=== PATIENT | female | born 1940 | race Hispanic/Latino ===

== ENCOUNTER 2018-03-17 23:12 | Emergency (ER) | payer MEDICARE ==
--- NOTE | 2018-03-17 23:44 | C.PDOC ---
History Of Present Illness 78 year old female presents to the ED from her [place] apartment. Patient states she heard voices from her ceiling and thought she heard people were trying to kill her. Patient is pleasant, cooperative, well groomed. Patient states she wants to spend the night in the ED. Patient denies SI/HI, hallucinations, other medical complaints. Time Seen by Provider: 03/17/18 23:44 Chief Complaint (Nursing): Psychiatric Evaluation History Per: Patient History/Exam Limitations: no limitations Onset/Duration Of Symptoms: Hrs Current Symptoms Are (Timing): Still Present Suicide/Self Injury Attempted (Context): None Modifying Factor(s): None Associated Symptoms: denies: Depression, Suicidal Thoughts, Suicidal Plan Involuntary Hold By: None Recent travel outside of the [place]: No Additional History Per: Patient Past Medical History Reviewed: Historical Data, Nursing Documentation, Vital Signs Vital Signs: Last Vital Signs Temp 97.9 F 03/18/18 04:07 Pulse 62 03/18/18 04:07 Resp 20 03/18/18 04:07 BP 136/70 03/18/18 04:07 Pulse Ox 100 03/18/18 04:07 - Medical History PMH: No Chronic Diseases Surgical History: No Surg Hx Family History: States: Unknown Family Hx - Social History Hx Alcohol Use: Yes Hx Substance Use: No - Immunization History Hx Tetanus Toxoid Vaccination: Yes Hx Influenza Vaccination: Yes Hx Pneumococcal Vaccination: Yes Review Of Systems Constitutional: Negative for: Fever, Chills Cardiovascular: Negative for: Chest Pain Gastrointestinal: Negative for: Nausea, Vomiting Neurological: Negative for: Weakness, Numbness Psych: Negative for: Depression, Suicidal ideation Physical Exam - Physical Exam Appears: Non-toxic, No Acute Distress Skin: Warm, Dry Head: Normacephalic Eye(s): bilateral: Normal Inspection Neck: Supple Chest: Symmetrical Cardiovascular: Rhythm Regular Respiratory: No Rales, No Rhonchi, No Wheezing Gastrointestinal/Abdominal: Soft, No Tenderness, No Guarding, No Rebound Extremity: Bilateral: Atraumatic, Normal Color And Temperature, Normal ROM Neurological/Psych: Oriented x3, Normal Speech Gait: Steady ED Course And Treatment O2 Sat by Pulse Oximetry: 98 (ON RA) Pulse Ox Interpretation: Normal Disposition Counseled Patient/Family Regarding: Studies Performed, Diagnosis - Disposition Disposition Time: 23:44 Condition: FAIR Forms: [employer] (Wolof) - Clinical Impression Clinical Impression: Dementia - Scribe Statement The provider has reviewed the documentation as recorded by the Scribe New Shoemaker All medical record entries made by the Scribe were at my direction and personally dictated by me. I have reviewed the chart and agree that the record accurately reflects my personal performance of the history, physical exam, medical decision making, and the department course for this patient. I have also personally directed, reviewed, and agree with the discharge instructions and disposition. Physician Patient Turnover Patient Signed Over To: Malena Watts Handoff Comments: pending face to face exam by dr Arora.
[2018-03-18 06:39] VITALS: RESP 18
--- NOTE | 2018-03-18 08:53 | PCM.PSYCH ---
<Simi Arora - Last Filed: 03/18/18 08:52> Initial Psychiatric Evaluation - Initial Psychiatric Evaluation Type of Admission: Voluntary Chief Complaint (in patient's own words): "My neighbors bother me" History of Present Illness and Precipitating Events: The pt is seen, chart reviewed, case discussed. Consult was requested for her psych sxs (paranoia) She is cleared for d/c Crisis will arrange transportation (cab or family) Full note to follow Past Psychiatric History - Past Psychiatric History Pertinent Medical Hx (Current Medical&Sleep Prob, Allergies): Allergies Allergy/AdvReac Type Severity Reaction Status Date / Time No Known Allergies Allergy Verified 06/26/17 10:54 No Known Home Med 03/18/18 <Malena Watts - Last Filed: 03/18/18 09:54> Past Psychiatric History - Past Psychiatric History Pertinent Medical Hx (Current Medical&Sleep Prob, Allergies): Allergies Allergy/AdvReac Type Severity Reaction Status Date / Time No Known Allergies Allergy Verified 06/26/17 10:54 No Known Home Med 03/18/18
[2018-03-18 09:08] VITALS: BP 138/78; PULSE 72; TEMP 98.4; O2SAT 100
== END 2018-03-18 10:07 | disposition home or self-care (01) ==
LOC: C.ER 23:12
DX: F03.90 Unspecified dementia, unspecified severity, without behavioral disturbance, psychotic disturbance, mood disturbance, and anxiety (principal)

== ENCOUNTER 2018-07-04 22:32 | Emergency (ER) | payer MEDICARE ==
[2018-07-04 22:45] VITALS: TEMP 97.5; O2SAT 100
[2018-07-04 23:22] VITALS: BP 161/87; PULSE 80; RESP 18
--- NOTE | 2018-07-05 00:07 | C.PDOC ---
History Of Present Illness 78 year old female presents to the ED c/o right foot pain. Patient states she misstepped, felt pulling to the posterior right ankle area few hours [employer]. Patient reports similar injury to the same leg 6 weeks ago. Patient did not taken anything for pain. Patient denies weakness, numbness, direct trauma or fall. Time Seen by Provider: 07/04/18 22:58 Chief Complaint (Nursing): Lower Extremity Problem/Injury History Per: Patient History/Exam Limitations: no limitations Onset/Duration Of Symptoms: Hrs Current Symptoms Are (Timing): Still Present Recent travel outside of the [place]: No Additional History Per: Patient - Ankle/Foot Description Of Injury: Twisted Past Medical History Reviewed: Historical Data, Nursing Documentation, Vital Signs Vital Signs: Last Vital Signs Temp 97.5 F L 07/04/18 22:36 Pulse 80 07/04/18 23:21 Resp 18 07/04/18 23:21 BP 161/87 H 07/04/18 23:21 Pulse Ox 100 07/04/18 23:21 - Medical History PMH: No Chronic Diseases Denies: Diabetes, Hepatitis, HIV, HTN, Seizures, Sexually Transmitted Disease Surgical History: No Surg Hx Family History: States: Unknown Family Hx - Social History Hx Alcohol Use: Yes Hx Substance Use: No - Immunization History Hx Tetanus Toxoid Vaccination: Yes Hx Influenza Vaccination: Yes Hx Pneumococcal Vaccination: Yes Review Of Systems Constitutional: Negative for: Fever, Chills Cardiovascular: Negative for: Chest Pain Respiratory: Negative for: Shortness of Breath Gastrointestinal: Negative for: Nausea, Vomiting, Abdominal Pain Musculoskeletal: Positive for: Foot Pain Skin: Negative for: Rash Neurological: Negative for: Weakness, Numbness Physical Exam - Physical Exam Appears: Non-toxic, No Acute Distress Skin: Normal Color, Warm, Dry Head: Atraumatic, Normacephalic Eye(s): bilateral: Normal Inspection Neck: Normal ROM, Supple Extremity: Normal ROM, Tenderness (posterior right ankle area), Capillary Refill (< 2 seconds), No Deformity, No Swelling, Other (no tenderness to right lateral and medial malleolus) Pulses: Left Dorsalis Pedis: Normal, Right Dorsalis Pedis: Normal Neurological/Psych: Oriented x3, Normal Speech, Normal Cognition, Normal Motor, Normal Sensation Gait: Steady ED Course And Treatment O2 Sat by Pulse Oximetry: 100 (ON RA) Pulse Ox Interpretation: Normal - Other Rad Right ankle X-Ray X-Ray: Interpreted by Me, Viewed By Me Interpretation: No fracture or dislocation Progress Note: Plan: - Motrin 400 mg PO. - right ankle X-Ray. On reassessment, patient is resting comfortably, and is in no acute distress. Patient was instructed to follow up with physician/clinic in 1-2 days for further evaluation. Disposition Counseled Patient/Family Regarding: Diagnosis, Need For Followup, Rx Given - Disposition Disposition: HOME/ ROUTINE Disposition Time: 00:01 Condition: STABLE Additional Instructions: Wear LAURA bandage for support Take motrin or advil as needed for pain Return to ER if worse Instructions: Ankle Sprain (DC) Forms: [employer] (Serbian) - Clinical Impression Clinical Impression: Right ankle sprain - PA / CHIROPRACTIC DOCTOR / Resident Statement MD/DO has reviewed & agrees with the documentation as recorded. - Scribe Statement The provider has reviewed the documentation as recorded by the Scribe New [employer]emaker All medical record entries made by the Scribe were at my direction and personally dictated by me. I have reviewed the chart and agree that the record accurately reflects my personal performance of the history, physical exam, medical decision making, and the department course for this patient. I have also personally directed, reviewed, and agree with the discharge instructions and disposition.
--- NOTE | 2018-07-05 10:38 | RAD ---
Date of service: 07/04/2018 PROCEDURE: Right Ankle Radiographs. HISTORY: pain, posterior ankle COMPARISON: None available. FINDINGS: BONES: Normal. No fracture. JOINTS: Normal. No osteoarthritis. Ankle mortise maintained. Talar dome intact SOFT TISSUES: Mild circumferential soft tissue swelling. OTHER FINDINGS: None. IMPRESSION: No acute fracture. Mild soft tissue swelling circumferentially.
== END 2018-07-05 00:27 | disposition home or self-care (01) ==
LOC: C.ER 22:32
DX: S93.401A Sprain of unspecified ligament of right ankle, initial encounter (principal); X58.XXXA Exposure to other specified factors, initial encounter

== ENCOUNTER 2018-10-30 11:35 | Inpatient (IN) | payer MEDICARE ==
[2018-10-30 13:33] LABS: BASO # 0.1 K/uL (0.0-0.2); EOS # 0.1 K/uL (0.0-0.7); EOS % 1.3 % (0.0-4.0); LYMPH # 2.1 K/uL (1.0-4.3); LYMPH % 23.6 % (20.0-40.0); MEAN CORPUSCULAR HEMOGLOBIN 31.5 pg (27.0-31.0); MEAN CORPUSCULAR HGB CONC 35.1 g/dL (33.0-37.0); MEAN PLATELET VOLUME 8.8 fL (7.2-11.7); MONO # 0.6 K/uL (0.0-0.8); MONO % 6.5 % (0.0-10.0); NEUT % 67.6 % (50.0-75.0); RBC 4.75 Mil/uL (3.80-5.20); RED CELL DISTRIBUTION WIDTH 13.4 % (11.5-14.5); WHITE BLOOD COUNT 8.9 K/uL (4.8-10.8)
[2018-10-30 13:37] LABS: MEAN CELL VOLUME 89.8 fL (81.0-99.0)
[2018-10-30 13:42] LABS: SQUAMOUS EPITHIAL 37 /hpf (0-5); URINE BACTERIA OCC (<OCC); URINE BILIRUBIN NEGATIVE (NEGATIVE); URINE BLOOD NEGATIVE (NEGATIVE); URINE CLARITY Hazy (Clear); URINE COLOR Yellow (YELLOW); URINE GLUCOSE (UA) NORMAL (Normal); URINE LEUKOCYTE ESTERASE 3+ Leu/uL (Negative); URINE PROTEIN NEGATIVE (NEGATIVE); URINE UROBILINOGEN NORMAL mg/dL (0.2-1.0)
[2018-10-30 13:48] LABS: ALB/GLOB RATIO 1.7 (1.0-2.1); ALBUMIN 4.5 g/dL (3.5-5.0); ALT/SGPT 23 U/L (9-52); AST/SGOT 28 U/L (14-36); BLOOD UREA NITROGEN 20 mg/dL (7-17); CALCIUM 10.1 mg/dl (8.6-10.4); GFR NON-AFRICAN AMERICAN > 60; LIPASE 96 U/L (23-300)
[2018-10-30 14:02] LABS: BARBITURATES, UR NEGATIVE (NEGATIVE); BENZODIAZEPINES, UR NEGATIVE (NEGATIVE); OPIATES, UR NEGATIVE (NEGATIVE); PHENCYCLIDINE, UR NEGATIVE (NEGATIVE)
[2018-10-30] MEDS ORDERED: Sodium Chloride 0.9% 1,000 ML IV SCH (14:30)
[2018-10-30] MEDS ORDERED: Sodium Chloride 0.9% 1,000 ML ONE (14:40)
--- NOTE | 2018-10-30 14:54 | C.PDOC ---
History Of Present Illness 78 y/o female with unclear pmh brought to ed by police, found wandering in the street. pt initially mildly agitated and saying things about being in withdrawal and needing an antidote form orange juice and alcohol that she drank. daughter was contacted and told nurse Yolanda that mother has had periods of confusion over last few years and she has been unable to get her to doctor for evaluation. pt voices no physcial complaints or psychiatric complaints. Time Seen by Provider: 10/30/18 12:32 Chief Complaint (Nursing): Altered Mental Status History Per: Patient, EMS, Family Onset Of Symptoms: Cannot Confirm Onset Current Symptoms Are (Timing): Better Usual Baseline: Unknown Exacerbating Factor(s): Unknown Use Of Anticoag/Antiplatelets: Unknown Speech Is: Normal Associated Symptoms: Confused, Agitated. denies: Fever, Chills Past Medical History Reviewed: Historical Data, Nursing Documentation, Vital Signs Vital Signs: Last Vital Signs Temp 99.2 F 10/30/18 11:45 Pulse 92 H 10/30/18 11:45 Resp 17 10/30/18 11:45 BP 154/103 H 10/30/18 11:45 Pulse Ox 97 10/30/18 11:45 Primary Care Provider: [place] - Medical History PMH: Denies: Diabetes, Hepatitis, HIV, HTN, Seizures, Sexually Transmitted Disease Family History: States: Unknown Family Hx - Social History Hx Alcohol Use: Yes Hx Substance Use: No - Immunization History Hx Tetanus Toxoid Vaccination: Yes Hx Influenza Vaccination: Yes Hx Pneumococcal Vaccination: Yes Review Of Systems Review Of Systems: ROS cannot be obtained secondary to pt's inabilty to answer questions. Physical Exam - Physical Exam Appears: Non-toxic, No Acute Distress, Confused Skin: Warm, Dry Head: Atraumatic, Normacephalic Nose: No Discharge Oral Mucosa: Dry (mild) Throat: No Erythema, No Exudate Neck: Supple Cardiovascular: Rhythm Regular, No Murmur Respiratory: No Decreased Breath Sounds, No Rales, No Rhonchi Gastrointestinal/Abdominal: Bowel Sounds, Soft, No Tenderness, No Guarding, No Rebound Extremity: Normal ROM Neurological/Psych: Oriented x3, Normal Speech, Normal Cognition, Normal Motor, Normal Sensation ED Course And Treatment - Laboratory Results Result Diagrams: 10/30/18 13:25 10/30/18 13:25 Lab Results: Total Bilirubin 0.7 mg/dL (0.2-1.3) 10/30/18 13:25 AST 28 U/L (14-36) 10/30/18 13:25 ALT 23 U/L (9-52) 10/30/18 13:25 Alkaline Phosphatase 74 U/L (38-126) 10/30/18 13:25 Total Protein 7.2 g/dL (6.3-8.3) 10/30/18 13:25 Albumin 4.5 g/dL (3.5-5.0) 10/30/18 13:25 Globulin 2.7 gm/dL (2.2-3.9) 10/30/18 13:25 Albumin/Globulin Ratio 1.7 (1.0-2.1) 10/30/18 13:25 Lipase 96 U/L (23-300) 10/30/18 13:25 Urine Color Yellow (YELLOW) 10/30/18 13:25 Urine Clarity Hazy (Clear) 10/30/18 13:25 Urine pH 5.0 (5.0-8.0) 10/30/18 13:25 Ur Specific [place] 1.011 (1.003-1.030) 10/30/18 13:25 Urine Protein Negative mg/dL (NEGATIVE) 10/30/18 13:25 Urine Glucose (UA) Normal mg/dL (Normal) 10/30/18 13:25 Urine Ketones Negative mg/dL (NEGATIVE) 10/30/18 13:25 Urine Blood Negative (NEGATIVE) 10/30/18 13:25 Urine Nitrate Negative (NEGATIVE) 10/30/18 13:25 Urine Bilirubin Negative (NEGATIVE) 10/30/18 13:25 Urine Urobilinogen Normal mg/dL (0.2-1.0) 10/30/18 13:25 Ur Leukocyte Esterase 3+ Adalid/uL (Negative) H 10/30/18 13:25 Urine WBC (Auto) 91 /hpf (0-5) H 10/30/18 13:25 Urine RBC (Auto) 5 /hpf (0-3) H 10/30/18 13:25 Ur Squamous Epith Cells 37 /hpf (0-5) H 10/30/18 13:25 Urine Bacteria Occ (<OCC) H 10/30/18 13:25 O2 Sat by Pulse Oximetry: 97 (RA) Pulse Ox Interpretation: Normal - CT Scan/US CT-Head Other Rad Studies (CT/US): Read By Radiologist, Radiology Report Reviewed CT/US Interpretation: IMPRESSION: 10 mm rounded heterogeneous mass in the sella raises suspicion for adenoma. MRI utilizing pituitary protocol suggested for further evaluation. Nonspecific white matter changes. Medical Decision Making Medical Decision Making: pt with confusion, mildly agitated. now calmer. pt found to have uti, mild dehdration. will admit to Dr Reynaga, he accepts pt to his service. Disposition Discussed With : Dago Reynaga Doctor Will See Patient In The: Hospital - Disposition Disposition: HOSPITALIZED Disposition Time: 14:57 Condition: STABLE - Clinical Impression Clinical Impression: Altered mental status, Dehydration, mild, UTI (urinary tract infection)
--- NOTE | 2018-10-30 15:41 | CT ---
Date of service: 10/30/2018 PROCEDURE: CT HEAD WITHOUT CONTRAST. HISTORY: ams COMPARISON: None available. TECHNIQUE: Axial computed tomography images were obtained through the head/brain without intravenous contrast. Radiation dose: Total exam DLP = 1063.39 mGy-cm. This CT exam was performed using one or more of the following dose reduction techniques: Automated exposure control, adjustment of the mA and/or kV according to patient size, and/or use of iterative reconstruction technique. FINDINGS: HEMORRHAGE: No intracranial hemorrhage. BRAIN: Diffuse atrophy with prominence of the ventricles and sulci noted. 10 mm rounded heterogeneous mass in the sella raises suspicion for adenoma. No mass effect or edema. Intracranial atherosclerosis. Scattered periventricular and subcortical white matter hypodensities, which are nonspecific, but often seen with chronic microvascular ischemic disease. Please note that MRI with diffusion imaging is more sensitive in the detection of acute ischemic event. VENTRICLES: No hydrocephalus. CALVARIUM: Unremarkable. PARANASAL SINUSES: Unremarkable as visualized. No significant inflammatory changes. MASTOID AIR CELLS: Unremarkable as visualized. No inflammatory changes. OTHER FINDINGS: None. IMPRESSION: 10 mm rounded heterogeneous mass in the sella raises suspicion for adenoma. MRI utilizing pituitary protocol suggested for further evaluation. Nonspecific white matter changes.
--- NOTE | 2018-10-30 15:58 | CP.PCM.HP ---
<Celsa Jack - Last Filed: 10/30/18 20:17> History of Present Illness - History of Present Illness History of Present Illness: PGY-1 Celsa Jack D.O. H&P for Dr. Jaden Pappas's service: Patient is a 78 yo female with no significant PMH who presented after being found by police wandering in the streets. Upon initial encounter in the ED, patient was observed to be talking in a low voice to herself. When creative services writer approached, patient was very pleasant. She stated that she was walking in the park when she ran into a friend who offered her a beer. She said she took the can of beer and drank it while walking. She thinks that someone must have "slipped something" into her drink because she started to see bubbles and people reaching out hands trying to grab her. Patient stated that these were "hallucinations" and lasted for approximately 2 hours. She states that she then went into a hindu to tell them she did not feel well, and she believes that they called the police. Patient is very cooperative and able to provide her history accurately. She makes good eye contact and speaks fluently and appropriately. Approximately 1 hour after the patient was initially interviewed, the ED called to inform that the patient was very agitated and was attempting to elope. This time when the creative services writer approached the patient, so stated that she did not want to talk and she wanted to leave immediately. She took out her cell phone from her purse and said she was calling the police. She told the police over the phone that someone was trying to blow up her apartment building as well as the hospital. Patient physically tried to run away. Security was called to help restrain patient while she was given IM Haldol. Patient remained alert and awake but calmer. Patient's daughter, Akiko, was called. Akiko states that her mother has been like this for approximately 5 years and has been getting progressively worse. She reports that the patient frequently becomes paranoid. She says that she can change her personality from "sweet" to "nasty" in a matter of minutes. Akiko believes that her mother has dementia because the patient's mother presented in a very similar manner when she was elderly and was formally diagnosed with dementia. Akiko has been trying to get the patient to see a doctor to evaluate her for dementia, but each time, the patient becomes very dismissive. Akiko lives in [facility] and offered to have her mother move with her but she refused. Akiko is informed that patient will be admitted to the medical floor, medicated for agitation, placed on 1:1 observation, and will be seen by a psychiatrist in the morning. Akiko is in complete agreement with this plan, and will attempt to travel to the hospital tomorrow. Discussion with layup worker. Patient would have to be an involuntary admission to the inpatient psych unit at [facility] [place] [place] as she lacks capacity. There is no guarantee that [facility] [place] would accept patient, and patient would likely have to stay in the ED for several days until a bed is available. The safest option for the patient at this point is to admit the patient to the medical floor on 1:1 and have psychiatrist see patient in the morning. At that time, depending on the patient's state of mind, she can hopefully sign in voluntarily to the geriatric psychiatry unit at [place]. PMH: glaucoma, dementia PSH: hysterectomy many years ago Meds: Timolol eye drops OU daily, eye injections Q4-6 weeks All: NKA FH: mother- HTN, father- heart disease, 1 sister- healthy, 2 children- healthy; denies FH of mental illness SH: drinks 1 beer or wine per week, quit smoking at age 28, denies illicit drugs, lives alone in senior apartment, used to work in retail PMD: Champ Present on Admission - Present on Admission Any Indicators Present on Admission: No History of DVT/PE: No History of Uncontrolled Diabetes: No Urinary Catheter: No Decubitus Ulcer Present: No History Surgical Site Infection Following: None Review of Systems - Constitutional Constitutional: absent: Chills, Fever, Headache - EENT Eyes: absent: Change in Vision Ears: absent: Ear Discharge Nose/Mouth/Throat: absent: Nasal Congestion - Cardiovascular Cardiovascular: absent: Chest Pain, Edema, Syncope - Respiratory Respiratory: absent: Cough, Dyspnea - Gastrointestinal Gastrointestinal: absent: Abdominal Pain, Constipation, Diarrhea, Nausea, Vomiting - Genitourinary Genitourinary: absent: Difficulty Urinating, Dysuria, Hematuria, Pyuria, Urinary Frequency, Urinary Hesitance, Urinary Urgency - Reproductive: Female Reproductive:Female: S/P Hysterectomy - Musculoskeletal Musculoskeletal: absent: Back Pain - Integumentary Integumentary: absent: Lesions, Rash - Neurological Neurological: absent: Numbness, Focal Weakness, Sensory Deficit, Tingling - Psychiatric Psychiatric: As Per HPI, Paranoia, Visual Hallucinations. absent: Anxiety, Depression - Endocrine Endocrine: absent: Fatigue, Palpitations, Polydipsia, Polyuria - Hematologic/Lymphatic Hematologic: absent: Easy Bleeding, Easy Bruising, Lymphadenopathy Past Patient History - Infectious Disease Hx of Infectious Diseases: None - Tetanus Immunizations Tetanus Immunization: Unknown - Past Medical History & Family History Past Medical History?: Yes Past Family History: Reviewed and not pertinent - Past Social History Smoking Status: Former Smoker Chewing Tobacco Use: No Cigar Use: No Alcohol: Social Drugs: Denies Home Situation {Lives}: Alone - CARDIAC Hx Hypertension: No - PULMONARY Hx Tuberculosis: No - NEUROLOGICAL Hx Seizures: No - HEENT Hx HEENT Problems: Yes Hx Glaucoma: Yes - HEMATOLOGICAL/ONCOLOGICAL Hx Human Immunodeficiency Virus (HIV): No - GENITOURINARY/GYNECOLOGICAL Hx Sexually Transmitted Disorders: No - PSYCHIATRIC Hx Substance Use: No - SURGICAL HISTORY Hx Surgeries: Yes Hx Hysterectomy: Yes (PARTIAL) Meds Allergies/Adverse Reactions: Allergies Allergy/AdvReac Type Severity Reaction Status Date / Time No Known Allergies Allergy Verified 10/30/18 11:51 Physical Exam - Constitutional Appears: Non-toxic, No Acute Distress - Head Exam Head Exam: ATRAUMATIC, NORMAL INSPECTION - Eye Exam Eye Exam: EOMI, Normal appearance, PERRL - ENT Exam ENT Exam: Mucous Membranes Moist - Respiratory Exam Respiratory Exam: Clear to Auscultation Bilateral, NORMAL BREATHING PATTERN. absent: Respiratory Distress - Cardiovascular Exam Cardiovascular Exam: RRR, +S1, +S2 - GI/Abdominal Exam GI & Abdominal Exam: Soft. absent: Distended, Tenderness - Extremities Exam Extremities exam: Positive for: normal inspection. Negative for: pedal edema, tenderness - Neurological Exam Neurological exam: Alert, CN II-XII Intact, Normal Gait, Oriented x3 - Psychiatric Exam Psychiatric exam: Agitated, Anxious - Skin Skin Exam: Dry, Normal Color, Warm Results - Vital Signs Recent Vital Signs: Last Vital Signs Temp 99.2 F 10/30/18 11:45 Pulse 92 H 10/30/18 11:45 Resp 17 10/30/18 11:45 BP 154/103 H 10/30/18 11:45 Pulse Ox 97 10/30/18 15:01 - Labs Result Diagrams: 10/30/18 13:25 10/30/18 13:25 Labs: Laboratory Results - last 24 hr 10/30/18 10/30/18 10/30/18 13:25 13:25 13:25 WBC 8.9 RBC 4.75 Hgb 15.0 Hct 42.7 MCV 89.8 D MCH 31.5 H MCHC 35.1 RDW 13.4 Plt Count 229 MPV 8.8 Neut % (Auto) 67.6 Lymph % (Auto) 23.6 Nash % (Auto) 6.5 Eos % (Auto) 1.3 Baso % (Auto) 1.0 Neut # (Auto) 6.0 Lymph # (Auto) 2.1 Nash # (Auto) 0.6 Eos # (Auto) 0.1 Baso # (Auto) 0.1 Sodium 139 Potassium 4.2 Chloride 106 Carbon Dioxide 21 L Anion Gap 17 BUN 20 H Creatinine 0.8 Est GFR ( Amer) > 60 Est GFR (Non-Af Amer) > 60 Random Glucose 104 D Calcium 10.1 Total Bilirubin 0.7 AST 28 ALT 23 Alkaline Phosphatase 74 Total Protein 7.2 Albumin 4.5 Globulin 2.7 Albumin/Globulin Ratio 1.7 Lipase 96 Urine Color Yellow Urine Clarity Hazy Urine pH 5.0 Ur Specific [place] 1.011 Urine Protein Negative Urine Glucose (UA) Normal Urine Ketones Negative Urine Blood Negative Urine Nitrate Negative Urine Bilirubin Negative Urine Urobilinogen Normal Ur Leukocyte Esterase 3+ H Urine WBC (Auto) 91 H Urine RBC (Auto) 5 H Ur Squamous Epith Cells 37 H Urine Bacteria Occ H Urine Opiates Screen Urine Methadone Screen Ur Barbiturates Screen Ur Phencyclidine Scrn Ur Amphetamines Screen U Benzodiazepines Scrn U Oth Cocaine Metabols U Cannabinoids Screen Alcohol, Quantitative < 10 10/30/18 13:25 WBC RBC Hgb Hct MCV MCH MCHC RDW Plt Count MPV Neut % (Auto) Lymph % (Auto) Nash % (Auto) Eos % (Auto) Baso % (Auto) Neut # (Auto) Lymph # (Auto) Nash # (Auto) Eos # (Auto) Baso # (Auto) Sodium Potassium Chloride Carbon Dioxide Anion Gap BUN Creatinine Est GFR ( Amer) Est GFR (Non-Af Amer) Random Glucose Calcium Total Bilirubin AST ALT Alkaline Phosphatase Total Protein Albumin Globulin Albumin/Globulin Ratio Lipase Urine Color Urine Clarity Urine pH Ur Specific [place] Urine Protein Urine Glucose (UA) Urine Ketones Urine Blood Urine Nitrate Urine Bilirubin Urine Urobilinogen Ur Leukocyte Esterase Urine WBC (Auto) Urine RBC (Auto) Ur Squamous Epith Cells Urine Bacteria Urine Opiates Screen Negative Urine Methadone Screen Negative Ur Barbiturates Screen Negative Ur Phencyclidine Scrn Negative Ur Amphetamines Screen Negative U Benzodiazepines Scrn Negative U Oth Cocaine Metabols Negative U Cannabinoids Screen Negative Alcohol, Quantitative Assessment & Plan - Assessment and Plan (Free Text) Assessment: Patient is a 78 yo female with no significant PMH who presented after being found by police wandering in the streets. Patient is expressing numerous paranoid delusions and is attempting to elope. Patient's daughter called who stated that this has been occurring for 5 years. Patient medicated and placed on 1:1. Pending psych eval. Plan: Dementia with psychotic features, chronic, progressive - CT head: 10 mm rounded heterogeneous mass in the sella raises suspicion for adenoma. MRI utilizing pituitary protocol suggested for further evaluation. Nonspecific white matter changes. Diffuse atrophy with prominence of the ventricles and sulci noted. - Obtain MRI as outpatient - 1:1 - No restraints - Haldol 5 mg IM Q6H PRN - Benadryl 12.5 mg IM Q6H PRN - Psychiatry consulted (Ed) Possible urinary tract infection - First UA with 37 squam epi cells - Repeat UA and Cx pending - Rocephin 1 g IV Q24H - Florastor 250 mg PO BID Glaucoma, chronic - Timolol drop OU daily Ppx: VTE: SCDs GI: not indicated Diet: Heart healthy Code status: full code Dispo: pending psych eval Case discussed with attending, Dr. Sharon Pappas. <Jaden Pappas - Last Filed: 10/31/18 19:03> Results - Vital Signs Recent Vital Signs: Last Vital Signs Temp 98.2 F 10/31/18 16:31 Pulse 63 10/31/18 16:31 Resp 20 10/31/18 16:31 BP 100/60 10/31/18 16:31 Pulse Ox 97 10/31/18 16:31 - Labs Result Diagrams: 10/30/18 13:25 10/30/18 13:25 Attending/Attestation - Attestation I have personally seen and examined this patient.: Yes I have fully participated in the care of the patient.: Yes I have reviewed all pertinent clinical information: Yes Notes (Text): 10/31/18 19:02 This is a late entry. Patient was seen and examined with resident Dr. Jack at the time of admission. History, Physical, Assessment and Plan and all orders were gone over with Dr. Jack. Jaden Pappas D.O.
[2018-10-30] MEDS ORDERED: DiphenhydrAMINE 50 mg/ml Inj IM PRN (18:44)
--- NOTE | 2018-10-31 09:51 | PCM.PSYCH ---
Initial Psychiatric Evaluation - Initial Psychiatric Evaluation Type of Admission: Voluntary Legal Status: Capacity Chief Complaint (in patient's own words): I m feeling naida.' ' History of Present Illness and Precipitating Events: Pt is a 78 year old female with no PMHx who was brought into the ED on 10/30/18. At the time of the initial interview patient reported wandering in the street seeing bubbles and people trying to grab me. She believes someone gave her a beer on the street and that it must have had something in it. She fell ill and people at a latter-day called the police. One hour later in the same evening, she got agitated in the ED and called the police to report a bomb threat. She was admitted to the medicine floor with one on one observation for patient safety. This morning, our psychiatry team was called to assess her competency. Patients daughter was contacted by the medicine resident who explained her mother likely has dementia. However, despite the daughters urging patient refuses to get medically evaluated since 5 years ago when her symptoms started. As per daughter, the patient is paranoid and has rapid mood alterations going from very sweet to extremely agitated. The episodes have been increasing in f requency. Pt also refused daughters invitation to come live her in [facility]. This morning, patient presented well. She knew her name, where she was, and todays date. She denied feel sad or depressed. She denied seeing or hearing things that are not there, however, she paused to answer before demanding to know who the psychiatrist was. She can recall scant details from the events last night except to repeat what they told me I was wandering in the street. Medicine team is attempting to straight cath her to obtain a clean catch to rule out a UTI. Head CT w/o contrast on 10/30/18 shows diffuse atrophy with prominence of the ventricles and sulci noted along with a 10mm rounded heterogenous mass in the sella raises suspicion for adenoma, however the medicine team does not attribute the latter findings to the symptoms. She denies any SI/HI. Current Medications: Active Medications Generic Name Dose Route Start Last Admin Trade Name Freq PRN Reason Stop Dose Admin Diphenhydramine HCl 12.5 mg 10/30/18 18:44 Benadryl IM Q6H PRN Agitation Haloperidol Lactate 5 mg 10/30/18 18:18 Haldol IM Q6H PRN Agitation Heparin Sodium (Porcine) 5,000 units 10/31/18 09:45 Heparin SC Q12H DMITRIY Ceftriaxone Sodium 1 gm/ 100 mls @ 100 mls/hr 10/31/18 10:00 Sodium Chloride IVPB DAILY [facility] Protocol Timolol Maleate 1 drop 10/31/18 10:00 Timoptic 0.5% Ophth Soln OU DAILY DMITRIY Past Psychiatric History - Past Psychiatric History Previous Treatment History: None Pertinent Medical Hx (Current Medical&Sleep Prob, Allergies): Allergies Allergy/AdvReac Type Severity Reaction Status Date / Time No Known Allergies Allergy Verified 10/30/18 11:51 Timolol 1 drop OU DAILY 10/30/18 Review of Systems - Review of Systems All systems: reviewed and no additional remarkable complaints except - Psychiatric Psychiatric: Anxiety, Auditory Hallucinations, Irritability, Mood Swings, Paranoia Mental Status Examination - Personal Presentation Personal Presentation: Looks stated age - Affect Affect: Constricted - Motor Activity Motor Activity: Psychomotor Agitation - Reliability in Providing Information Reliability in Providing Information: Poor, due to alteration in thoughts, Poor, due to altered mood - Speech Speech: Disorganized - Mood Mood: Anxious - Formal Thought Process Formal Thought Process: Hallucinations, Delusions, Paranoia, Loosening of associations - Hallucinations/Delusions Hallucinations: Visual, Auditory Delusions: Persecution - Obsessions/Compulsions Obsessions: No Compulsions: No - Cognitive Functions Orientation: Person, Place, Situation, Time Sensorium: Alert Attention/Concentration: Attentive Abstract Thinking: Daphne Estimate of Intelligence: Below average Judgement: Imparied, as evidence by: Poor judgement, Imparied, as evidence by: Lack of insight into illness - Risk Risk: Diminished functioning - Limitations Limitations: Living alone DSM 5 DX - DSM 5 DSM 5 Diagnosis: Delirium r/o Alzheimer's dementia with behavioral disturbances - Recommended/Plan of Treatment Treatment Recommendations and Plan of Treatment: Hydroxyzine prn Pt to be evaluated by the [facility] screeners for involuntary commitment. - Smoking Cessation Smoking Cessation Initiated: No
--- NOTE | 2018-10-31 13:18 | CP.PCM.PN ---
<Celsa Jack - Last Filed: 10/31/18 17:42> Subjective - Date & Time of Evaluation Date of Evaluation: 10/31/18 Time of Evaluation: 09:17 - Subjective Subjective: PGY-1 Celsa Jack D.O. Medicine progress note for Dr. Jaden Pappas's service: Patient was seen and examined this morning. She did not require any PRN med ications over night. She is on 1:1. She is calm, lying in bed. She has no acute complaints. She is about to eat her breakfast. Later in the morning, patient's son visits. Patient has been moved to the 4- person observation room. Discussion with patient's son was similar to that with daughter, Akiko, last night. Son states that patient's symptoms of paranoia, emotional lability, and forgetfulness have been occurring and progressing for the last few years. He says that he and his sister have frequently reached out to her to help and have her see a doctor; however, each time, the patient denies their assistance and becomes dismissive. Son is happy that patient is admitted to the hospital because he is worried about her being discharged alone. He confirms that patient does not have an advanced directive nor a POA. Various options of both voluntary and involuntary psychiatric units are presented to the son. He agrees that he would like patient admitted whether she signs in voluntarily or if accepted to involuntary unit. He also spoke to social service liaison, Bárbara. he will return to visit the hospital tomorrow and said that we can call him any time. He would like to be updated regarding the plan for his mother. Objective - Vital Signs/Intake and Output Vital Signs (last 24 hours): Temp Pulse Resp BP Pulse Ox 97.6 F 63 20 128/76 97 10/31/18 07:00 10/31/18 07:00 10/31/18 07:00 10/31/18 07:00 10/31/18 07:00 Intake and Output: 10/31/18 10/31/18 06:59 18:59 Intake Total 250 Balance 250 - Medications Medications: Current Medications Diphenhydramine HCl (Benadryl) 12.5 mg IM Q6H PRN PRN Reason: Agitation Haloperidol Lactate (Haldol) 5 mg IM Q6H PRN PRN Reason: Agitation Timolol Maleate (Timoptic 0.5% Ophth Soln) 1 drop OU DAILY DMITRIY Last Admin: 10/31/18 10:31 Dose: Not Given - Labs Labs: 10/30/18 13:25 10/30/18 13:25 - Constitutional Appears: Non-toxic, No Acute Distress - Head Exam Head Exam: ATRAUMATIC, NORMAL INSPECTION - Eye Exam Eye Exam: EOMI, Normal appearance - ENT Exam ENT Exam: Mucous Membranes Moist - Respiratory Exam Respiratory Exam: Clear to Ausculation Bilateral, NORMAL BREATHING PATTERN - Cardiovascular Exam Cardiovascular Exam: RRR, +S1, +S2 - GI/Abdominal Exam GI & Abdominal Exam: Soft. absent: Distended, Tenderness - Extremities Exam Extremities Exam: Normal Inspection - Neurological Exam Neurological Exam: Alert, Awake, CN II-XII Intact, Normal Gait, Oriented x3 - Psychiatric Exam Psychiatric exam: Normal Affect, Normal Mood - Skin Skin Exam: Dry, Normal Color, Warm Assessment and Plan - Assessment and Plan (Free Text) Assessment: Patient is a 78 yo female with no significant PMH who presented after being found by police wandering in the streets. Patient is expressing numerous paranoid delusions and is attempting to elope. Patient's daughter called [facility] that this has been occurring for 5 years. Patient medicated and placed on 1:1. Patient does not want to voluntary sign into a psychiatry unit; therefore, she is pending [place] [facility]. Plan: Dementia with psychotic features, chronic, progressive - CT head: 10 mm rounded heterogeneous mass in the sella raises suspicion for adenoma. MRI utilizing pituitary protocol suggested for further evaluation. Nonspecific white matter changes. Diffuse atrophy with prominence of the ventricles and sulci noted. - Urine culture no growth - 1:1 - No restraints - Haldol 5 mg IM Q6H PRN - Benadryl 12.5 mg IM Q6H PRN - Psychiatry consulted (Ed) - Outpatient neurocognitive eval for dementia Glaucoma, chronic - Timolol drop OU daily Pituitary adenoma, chronic - CT head: 10 mm rounded heterogeneous mass in the sella raises suspicion for adenoma. MRI utilizing pituitary protocol suggested for further evaluation. Nonspecific white matter changes. Diffuse atrophy with prominence of the ventricles and sulci noted. - Obtain MRI as outpatient Ppx: VTE: SCDs GI: not indicated Diet: Heart healthy Code status: full code Dispo: pending [facility] [place] Case discussed with attending, Dr. Sharon Pappas. <Jaden Pappas - Last Filed: 10/31/18 19:02> Objective - Vital Signs/Intake and Output Vital Signs (last 24 hours): Temp Pulse Resp BP Pulse Ox 98.2 F 63 20 100/60 97 10/31/18 16:31 10/31/18 16:31 10/31/18 16:31 10/31/18 16:31 10/31/18 16:31 Intake and Output: 10/31/18 11/01/18 18:59 06:59 Intake Total 580 Balance 580 - Medications Medications: Current Medications Diphenhydramine HCl (Benadryl) 12.5 mg IM Q6H PRN PRN Reason: Agitation Haloperidol Lactate (Haldol) 5 mg IM Q6H PRN PRN Reason: Agitation Pneumococcal Polyvalent Vaccine (Pneumovax 23 Vaccine) 0.5 ml IM .ONCE ONE Stop: 11/01/18 10:01 Timolol Maleate (Timoptic 0.5% Ophth Soln) 1 drop OU DAILY DMITRIY Last Admin: 10/31/18 10:31 Dose: Not Given - Labs Labs: 10/30/18 13:25 10/30/18 13:25 Attending/Attestation - Attestation I have personally seen and examined this patient.: Yes I have fully participated in the care of the patient.: Yes I have reviewed all pertinent clinical information, including history, physical exam and plan: Yes Notes (Text): 10/31/18 19:01 This patient was seen and examined shortly after resident Dr. Jack. Care of this paitient was gone over with Dr. Jack. Both Dr. Jack and I spoke with patient's son and explained plan. Jaden Pappas D.O.
[2018-11-01] MEDS ORDERED: Pneumococcal 23-Valent Vaccine IM ONE (10:00)
--- NOTE | 2018-11-01 11:00 | CP.PCM.PN ---
<Celsa Jack - Last Filed: 11/01/18 16:59> Subjective - Date & Time of Evaluation Date of Evaluation: 11/01/18 Time of Evaluation: 11:00 - Subjective Subjective: PGY-1 Celsa Jack D.O. Medicine progress note for Dr. Jaden Pappas's service: Patient was seen and examined this morning. She is agitated and said she wants to leave the hospital. She keeps calling her daughter and is threatening to call the police again and gear hobber. Daughter, Akiko, is called. She said she again spoke to mother over the phone today about living with her, but patient refused. Conveyed medical and psychiatric teams' recommendation of having patient evaluated by [facility] for involuntarily psychiatric admission. Akiko stated that she would like to get her evaluated and better stabilized on oral medications so that she could go home. Danny person and her daughter will come visit the patient today. Objective - Vital Signs/Intake and Output Vital Signs (last 24 hours): Temp Pulse Resp BP Pulse Ox 98.2 F 72 20 112/79 97 11/01/18 07:00 11/01/18 07:00 11/01/18 07:00 11/01/18 07:00 11/01/18 07:00 Intake and Output: 11/01/18 11/01/18 06:59 18:59 Intake Total 500 Balance 500 - Medications Medications: Current Medications Diphenhydramine HCl (Benadryl) 12.5 mg IM Q6H PRN PRN Reason: Agitation Haloperidol Lactate (Haldol) 5 mg IM Q6H PRN PRN Reason: Agitation Timolol Maleate (Timoptic 0.5% Ophth Soln) 1 drop OU DAILY DMITRIY Last Admin: 11/01/18 09:34 Dose: Not Given - Labs Labs: 10/30/18 13:25 10/30/18 13:25 - Constitutional Appears: No Acute Distress, Agitated - ENT Exam ENT Exam: Mucous Membranes Moist - Respiratory Exam Respiratory Exam: NORMAL BREATHING PATTERN. absent: Respiratory Distress - Neurological Exam Neurological Exam: Alert, Awake, Oriented x3 - Psychiatric Exam Psychiatric exam: Agitated - Skin Skin Exam: Normal Color - Additional Findings Additional findings: Patient uncooperative with physical exam. Assessment and Plan - Assessment and Plan (Free Text) Assessment: Patient is a 78 yo female with no significant PMH who presented after being found by police wandering in the streets. Patient is expressing numerous paranoid delusions and is attempting to elope. Patient's daughter called who stated that this has been occurring for 5 years. Patient medicated and placed on 1:1. Patient does not want to voluntary sign into a psychiatry unit; therefore, she is pending screening by [facility] for involuntary commitment. Plan: Dementia with psychotic features, chronic, progressive - CT head: 10 mm rounded heterogeneous mass in the sella raises suspicion for adenoma. MRI utilizing pituitary protocol suggested for further evaluation. Nonspecific white matter changes. Diffuse atrophy with prominence of the ventricles and sulci noted. - Note that pituitary adenoma is incidental finding and not related to patient's presentation - Urine culture no growth - 1:1 - No restraints - Haldol 5 mg IM Q6H PRN - Benadryl 12.5 mg IM Q6H PRN - Psychiatry consulted (Ed)- agrees with current PRN medications, rec [facility] screen - Outpatient neurocognitive eval for dementia - Pending [facility] screen- medical records faxed to them on 11/01 Glaucoma, chronic - Timolol drop OU daily Pituitary adenoma, chronic - CT head: 10 mm rounded heterogeneous mass in the sella raises suspicion for adenoma. MRI utilizing pituitary protocol suggested for further evaluation. Nonspecific white matter changes. Diffuse atrophy with prominence of the ventricles and sulci noted. - Obtain MRI as outpatient Ppx: VTE: SCDs GI: not indicated Diet: Heart healthy Code status: full code Dispo: Patient is medically cleared to be screened by [facility] and go to a psychiatric unit. Case discussed with attending, Dr. Sharon Pappas. <Jaden Pappas - Last Filed: 11/02/18 19:36> Objective - Vital Signs/Intake and Output Vital Signs (last 24 hours): Temp Pulse Resp BP Pulse Ox 98.1 F 62 20 113/73 96 11/02/18 16:49 11/02/18 16:49 11/02/18 16:49 11/02/18 16:49 11/02/18 16:49 Intake and Output: 11/02/18 11/03/18 18:59 06:59 Intake Total 680 240 Balance 680 240 - Medications Medications: Current Medications Diphenhydramine HCl (Benadryl) 12.5 mg IM Q6H PRN PRN Reason: Agitation Haloperidol Lactate (Haldol) 5 mg IM Q6H PRN PRN Reason: Agitation Last Admin: 11/01/18 20:10 Dose: 5 mg Timolol Maleate (Timoptic 0.5% Ophth Soln) 1 drop OU DAILY DMITRIY Last Admin: 11/02/18 09:10 Dose: Not Given - Labs Labs: 10/30/18 13:25 10/30/18 13:25 Attending/Attestation - Attestation I have personally seen and examined this patient.: Yes I have fully participated in the care of the patient.: Yes I have reviewed all pertinent clinical information, including history, physical exam and plan: Yes Notes (Text): 11/02/18 19:35 This is a late entry. Patient would not allow exam by me. Care of this patient was discussed in detail with resident Dr. Jack. Jaden Pappas D.O.
--- NOTE | 2018-11-01 16:30 | CP.PCM.PCO ---
Physician Communication Note - Physician Communication Note Physician Communication Note: Please note the above
--- NOTE | 2018-11-02 08:54 | CP.PCM.PN ---
<JustaalekseyBenny - Last Filed: 11/02/18 18:04> Subjective - Date & Time of Evaluation Date of Evaluation: 11/02/18 Time of Evaluation: 08:52 - Subjective Subjective: Medicine progress note for Dr. Jaden Pappas's service: Patient was seen and examined at bedside. Patient seen with attending, along with family. [facility] evaluation for inpt involuntary commitment was completed, and patient was not accepted. Long conversation with patient and son regarding plan moving forward. Son believes pt's daughter may have begun paperwork for [employer] but is not sure how far along she is. Patient is very upset about possibility of staying at [facility] until safe discharge can be arranged. She believes that she can be safely discharged and is threatening to call police about being held against her will. Son is fully aware of danger of patient being discharged on her own. The option was presented to him about coordinating with SW for placement into [facility] at [facility]. He agreed to further discussion at family meeting either tomorrow or Sunday. Pt denies acute physical complaints at this time saying "I feel fine and want to go home." Specifically denies chest pain or SOB, but ROS limited due to patient agitation. Objective - Vital Signs/Intake and Output Vital Signs (last 24 hours): Temp Pulse Resp BP Pulse Ox 97.5 F L 74 20 130/82 97 11/02/18 07:42 11/02/18 07:42 11/02/18 07:42 11/02/18 07:42 11/02/18 07:42 Intake and Output: 11/02/18 11/02/18 06:59 18:59 Intake Total 250 Balance 250 - Medications Medications: Current Medications Diphenhydramine HCl (Benadryl) 12.5 mg IM Q6H PRN PRN Reason: Agitation Haloperidol Lactate (Haldol) 5 mg IM Q6H PRN PRN Reason: Agitation Last Admin: 11/01/18 20:10 Dose: 5 mg Timolol Maleate (Timoptic 0.5% Ophth Soln) 1 drop OU DAILY DMITRIY Last Admin: 11/01/18 09:34 Dose: Not Given - Labs Labs: 10/30/18 13:25 10/30/18 13:25 - Additional Findings Additional findings: - Constitutional Appears: No Acute Distress, Agitated (tearful "saying I demand to go home") - ENT Exam ENT Exam: Mucous Membranes Moist - Respiratory Exam Respiratory Exam: NORMAL BREATHING PATTERN. absent: Respiratory Distress - Neurological Exam Neurological Exam: Alert, Awake, Absent: Oriented x 3 (person, place, not time/context) - Psychiatric Exam Psychiatric exam: Agitated - Skin Skin Exam: Normal Color - Additional Findings Additional findings: Patient uncooperative with physical exam; Limited by agitation Assessment and Plan - Assessment and Plan (Free Text) Plan: Assessment: Patient is a 78 yo female with no significant PMH who presented after being found by police wandering in the streets. Patient is expressing numerous paranoid delusions and is attempting to elope. Patient's daughter called who stated that this has been occurring for 5 years. Patient medicated and placed on 1:1. Patient does not want to voluntary sign into a psychiatry unit; [facility] evaluation for involuntary commitment was NOT accepted. Plan: Dementia with psychotic features, chronic, progressive - CT head: 10 mm rounded heterogeneous mass in the sella raises suspicion for adenoma. MRI utilizing pituitary protocol suggested for further evaluation. Nonspecific white matter changes. Diffuse atrophy with prominence of the ventricles and sulci noted. - Note that pituitary adenoma is incidental finding and not related to patient's presentation - Urine culture no growth - 1:1 - No restraints - Haldol 5 mg IM Q6H PRN - Benadryl 12.5 mg IM Q6H PRN - Psychiatry consulted (Ed)- agrees with current PRN medications, [facility] screen -spoke w/ Dr Canada, psych over the weekend who agrees, pt is an unsafe discharge - Outpatient neurocognitive eval for dementia - Pending [facility] screen- medical records faxed to them on 11/01 Glaucoma, chronic - Timolol drop OU daily Pituitary adenoma, chronic - CT head: 10 mm rounded heterogeneous mass in the sella raises suspicion for adenoma. MRI utilizing pituitary protocol suggested for further evaluation. Nonspecific white matter changes. Diffuse atrophy with prominence of the ventricles and sulci noted. - Obtain MRI as outpatient Abnormal UA, resolved UA () 37 squam epi cells, 3+ LE, 91 WBC, Occasional bacteria Urine Cx (10/30/18): Contaminated ; Repeat Cx (10/30/18): No growth Rocephin 1 g IV Q24H given once then discontinued Ppx: VTE: SCDs GI: not indicated Diet: Heart healthy Code status: full code Dispo: Patient not accepted into involuntary commitment at [facility]. Unsafe discharge at this time; family meeting tomorrow or Sunday at patient convenience (per son Arcenio). Discussed with Dr Canada, psych weekend attending, on rounds who did not recommend home discharge considering pt does not have capacity. Discussed with family about need for outpatient neurocognitive eval for dementia when discharged. Case discussed with attending, Dr. Sharon Cruz PGY3 <Jaden Pappas - Last Filed: 11/03/18 11:03> Objective - Vital Signs/Intake and Output Vital Signs (last 24 hours): Temp Pulse Resp BP Pulse Ox 97.8 F 85 20 131/87 96 11/03/18 07:57 11/03/18 07:57 11/03/18 07:57 11/03/18 07:57 11/03/18 07:57 Intake and Output: 11/03/18 11/03/18 06:59 18:59 Intake Total 480 Balance 480 - Medications Medications: Current Medications Diphenhydramine HCl (Benadryl) 12.5 mg IM Q6H PRN PRN Reason: Agitation Haloperidol Lactate (Haldol) 5 mg IM Q6H PRN PRN Reason: Agitation Last Admin: 11/01/18 20:10 Dose: 5 mg Timolol Maleate (Timoptic 0.5% Ophth Soln) 1 drop OU DAILY DMITRIY Last Admin: 11/03/18 10:49 Dose: Not Given - Labs Labs: 10/30/18 13:25 10/30/18 13:25 Attending/Attestation - Attestation I have personally seen and examined this patient.: Yes I have fully participated in the care of the patient.: Yes I have reviewed all pertinent clinical information, including history, physical exam and plan: Yes Notes (Text): 11/03/18 10:54 This is a late entry. Care of this patient was discussed at length with resident Dr. Na Cruz. As Dr. Cruz has documented above, both he and I spent significant time with patient's son Arcenio and patient discussing patient's care and the nature of her suspected dementia. Patient was presented with the option of going voluntarily to [facility] but declined stating that she was ok to go home. She was declined by [facility] Psychiatry Unit Involuntary Admission. Explained to son Arcenio that Medicine Team did NOT feel that it was safe for patient to be discharged to her home where she lives alone in light of police finding her wandering outside on the day of this current admission (please see resident Dr. Jack's History and Physical for details) and believing that were bombs on various road of . Son Arcenio will follow up with his Sister (patient's Daughter) to see when on Sunday that both of them can meet with the Case Manger/Artist Blacksmith as well as the Medicine Team and Psychiatry to determine options available to the Son and Daughter to arrange for the best possible care/placement for this patient. Medicine Team will need to coordinate with Psychiatry Dr. Ward to attend the family meeting on Sunday11/04/18 as considering that this patient's admission is Psychiatric nature, his input and help with coordination of the care of this patient is imperative. Jaden Pappas D.O.
--- NOTE | 2018-11-03 07:22 | CP.PCM.PN ---
<JustaBenny ryder - Last Filed: 11/03/18 16:31> Subjective - Date & Time of Evaluation Date of Evaluation: 11/03/18 Time of Evaluation: 07:22 - Subjective Subjective: Medicine progress note for Dr. Jaden Pappas's service: Patient was seen and examined at bedside. Patient easily becomes agitated during questioning, due to paranoid features of her dementia. She denies acute complaints but quickly becomes tearful and asks to be discharged home. She does not remember long conversation with son/granddaughter yesterday regarding why d ischarge would be unsafe at this time. Awaiting family to come by either today or tomorrow for further discussion of plan moving forward. Objective - Vital Signs/Intake and Output Vital Signs (last 24 hours): Temp Pulse Resp BP Pulse Ox 97.5 F L 57 L 20 119/65 100 11/02/18 23:45 11/02/18 23:45 11/02/18 23:45 11/02/18 23:45 11/02/18 23:45 Intake and Output: 11/03/18 11/03/18 06:59 18:59 Intake Total 480 Balance 480 - Medications Medications: Current Medications Diphenhydramine HCl (Benadryl) 12.5 mg IM Q6H PRN PRN Reason: Agitation Haloperidol Lactate (Haldol) 5 mg IM Q6H PRN PRN Reason: Agitation Last Admin: 11/01/18 20:10 Dose: 5 mg Timolol Maleate (Timoptic 0.5% Ophth Soln) 1 drop OU DAILY DMITRIY Last Admin: 11/02/18 09:10 Dose: Not Given - Labs Labs: 10/30/18 13:25 10/30/18 13:25 - Additional Findings Additional findings: Patient uncooperative with physical exam; Exam limited due to patient agitation - Constitutional Appears: No Acute Distress, Agitated - ENT Exam ENT Exam: Mucous Membranes Moist - Respiratory Exam Respiratory Exam: NORMAL BREATHING PATTERN, unable to auscultate as patient refuses - Neurological Exam Neurological Exam: Alert, Awake, Absent: Oriented x 2 (person, place - aware in hospital, not time/context) - Psychiatric Exam Psychiatric exam: Agitated - Skin Skin Exam: Normal Color Assessment and Plan - Assessment and Plan (Free Text) Plan: Assessment: Patient is a 78 yo female with no significant PMH who presented after being found by police wandering in the streets. Patient is expressing numerous paranoid delusions and is attempting to elope. Patient's daughter called who stated that this has been occurring for 5 years. Patient medicated and placed on 1:1. Patient does not want to voluntary sign into a psychiatry unit; [facility] evaluation for involuntary commitment was NOT accepted. Plan: Dementia with psychotic features, chronic, progressive - CT head: 10 mm rounded heterogeneous mass in the sella raises suspicion for adenoma. MRI utilizing pituitary protocol suggested for further evaluation. Nonspecific white matter changes. Diffuse atrophy with prominence of the ventricles and sulci noted. - Note that pituitary adenoma is incidental finding and not related to patient's presentation - Urine culture no growth - 1:1 - No restraints - Haldol 5 mg IM Q6H PRN - Benadryl 12.5 mg IM Q6H PRN - Psychiatry consulted (Ed)- agrees with current PRN medications, [facility] screen -spoke w/ Dr Canada, psych over the weekend who agrees, pt is an unsafe discharge - Outpatient neurocognitive eval for dementia - Pending [facility] screen- medical records faxed to them on 11/01 Glaucoma, chronic - Timolol drop OU daily Pituitary adenoma, chronic - CT head: 10 mm rounded heterogeneous mass in the sella raises suspicion for adenoma. MRI utilizing pituitary protocol suggested for further evaluation. Nonspecific white matter changes. Diffuse atrophy with prominence of the ventricles and sulci noted. - Obtain MRI as outpatient Abnormal UA, resolved UA () 37 squam epi cells, 3+ LE, 91 WBC, Occasional bacteria Urine Cx (10/30/18): Contaminated ; Repeat Cx (10/30/18): No growth Rocephin 1 g IV given once then discontinued Ppx: VTE: SCDs GI: not indicated Diet: Heart healthy Code status: full code Dispo: Patient not accepted into involuntary commitment at [facility]. Unsafe discharge at this time; family meeting today or Sunday at family convenience (per son Arcenio). Discussed with Dr Canada, psych weekend attending, on rounds on 11/02, who did not recommend home discharge considering pt does not have capacity. Discussed with family about need for outpatient neurocognitive eval for dementia when discharged. Gave information for [facility] inpatient unit at [place] to family. Case discussed with attending, Dr. Sharon Cruz PGY3 <Jaden Papaps - Last Filed: 11/03/18 17:51> Objective - Vital Signs/Intake and Output Vital Signs (last 24 hours): Temp Pulse Resp BP Pulse Ox 98.2 F 81 16 125/84 97 11/03/18 15:30 11/03/18 15:30 11/03/18 15:30 11/03/18 15:30 11/03/18 15:30 Intake and Output: 11/03/18 11/03/18 06:59 18:59 Intake Total 480 700 Balance 480 700 - Medications Medications: Current Medications Diphenhydramine HCl (Benadryl) 12.5 mg IM Q6H PRN PRN Reason: Agitation Haloperidol Lactate (Haldol) 5 mg IM Q6H PRN PRN Reason: Agitation Last Admin: 11/01/18 20:10 Dose: 5 mg Timolol Maleate (Timoptic 0.5% Ophth Soln) 1 drop OU DAILY DMITRIY Last Admin: 11/03/18 10:49 Dose: Not Given - Labs Labs: 10/30/18 13:25 10/30/18 13:25 Attending/Attestation - Attestation I have personally seen and examined this patient.: No I have fully participated in the care of the patient.: Yes I have reviewed all pertinent clinical information, including history, physical exam and plan: Yes Notes (Text): 11/03/18 17:45 The care of this patient was gone over with resident Dr. Na Cruz. Jaden Pappas D.O.
--- NOTE | 2018-11-03 11:03 | CP.PCM.PCO ---
Physician Communication Note - Physician Communication Note Physician Communication Note: Please see above
[2018-11-04 02:13] VITALS: RESP 20
--- NOTE | 2018-11-04 14:01 | CP.PCM.PN ---
<Nilo Weiss - Last Filed: 11/04/18 17:02> Subjective - Date & Time of Evaluation Date of Evaluation: 11/04/18 Time of Evaluation: 13:57 - Subjective Subjective: HOSPITALIST SERVICE Pt s/e at bedside, denies CP SOB FC NV, does not want to be here anymore, would like to go home, had an auditory hallucination during interview, told us to leave her alone and mind her business. Objective - Vital Signs/Intake and Output Vital Signs (last 24 hours): Temp Pulse Resp BP Pulse Ox 98.3 F 86 20 137/80 97 11/04/18 08:00 11/04/18 08:00 11/04/18 08:00 11/04/18 08:00 11/04/18 08:00 Intake and Output: 11/04/18 11/04/18 06:59 18:59 Intake Total 200 Balance 200 - Medications Medications: Current Medications Diphenhydramine HCl (Benadryl) 12.5 mg IM Q6H PRN PRN Reason: Agitation Haloperidol Lactate (Haldol) 5 mg IM Q6H PRN PRN Reason: Agitation Last Admin: 11/01/18 20:10 Dose: 5 mg Timolol Maleate (Timoptic 0.5% Ophth Soln) 1 drop OU DAILY DMITRIY Last Admin: 11/04/18 10:58 Dose: 1 drop - Labs Labs: 10/30/18 13:25 10/30/18 13:25 - Additional Findings Additional findings: Patient uncooperative with physical exam; Exam limited due to patient agitation and refusal - Constitutional Appears: No Acute Distress, Agitated - ENT Exam ENT Exam: Mucous Membranes Moist - Respiratory Exam Respiratory Exam: NORMAL BREATHING PATTERN, unable to auscultate as patient refuses - Neurological Exam Neurological Exam: Alert, Awake, Absent: Oriented x 2 (person, place - aware in hospital, not time/context) - Psychiatric Exam Psychiatric exam: Agitated - Skin Skin Exam: Normal Color Assessment and Plan - Assessment and Plan (Free Text) Assessment: Assessment and Plan - Assessment and Plan (Free Text) Plan: Assessment: Patient is a 78 yo female with no significant PMH who presented after being found by police wandering in the streets. Patient is expressing numerous paranoid delusions and is attempting to elope. Patient's daughter called who s tated that this has been occurring for 5 years. Patient medicated and placed on 1:1. Patient does not want to voluntary sign into a psychiatry unit; [facility] evaluation for involuntary commitment was NOT accepted. Plan: Dementia with psychotic features, chronic, progressive - CT head: 10 mm rounded heterogeneous mass in the sella raises suspicion for adenoma. MRI utilizing pituitary protocol suggested for further evaluation. Nonspecific white matter changes. Diffuse atrophy with prominence of the ventricles and sulci noted. - Note that pituitary adenoma is incidental finding and not related to patient's presentation - Urine culture no growth - 1:1 - No restraints - Haldol 5 mg IM Q6H PRN - Benadryl 12.5 mg IM Q6H PRN - Psychiatry consulted (Ed)- agrees with current PRN medications, [facility] screen -spoke w/ Dr Canada, psych over the weekend who agrees, pt is an unsafe discharge - Outpatient neurocognitive eval for dementia - Pending [facility] screen- medical records faxed to them on 11/01 Glaucoma, chronic - Timolol drop OU daily Pituitary adenoma, chronic - CT head: 10 mm rounded heterogeneous mass in the sella raises suspicion for adenoma. MRI utilizing pituitary protocol suggested for further evaluation. Nonspecific white matter changes. Diffuse atrophy with prominence of the ventricles and sulci noted. - Obtain MRI as outpatient Abnormal UA, resolved UA () 37 squam epi cells, 3+ LE, 91 WBC, Occasional bacteria Urine Cx (10/30/18): Contaminated ; Repeat Cx (10/30/18): No growth Rocephin 1 g IV given once then discontinued Ppx: VTE: SCDs GI: not indicated Diet: Heart healthy Code status: full code Dispo: Patient not accepted into involuntary commitment at [facility]. Unsafe discharge at this time; family meeting today or Sunday at family convenience (per son Arcenio). Discussed with Dr Canada, psych weekend attending, on rounds on 11/02, who did not recommend home discharge considering pt does not have cap acity. Discussed with family about need for outpatient neurocognitive eval for dementia when discharged. Gave information for [facility] unit at [place] to family. Case discussed with attending <Zeny Mackenzie V - Last Filed: 11/05/18 15:20> Objective - Vital Signs/Intake and Output Vital Signs (last 24 hours): Temp Pulse Resp BP Pulse Ox 98.7 F 95 H 20 117/61 96 11/05/18 07:00 11/05/18 07:00 11/05/18 07:00 11/05/18 07:00 11/05/18 07:00 - Labs Labs: 10/30/18 13:25 10/30/18 13:25 Attending/Attestation - Attestation I have personally seen and examined this patient.: Yes I have fully participated in the care of the patient.: Yes I have reviewed all pertinent clinical information, including history, physical exam and plan: Yes Notes (Text): This is a late computer entry for November 04, 2018. Patient seen, examined case discussed with medical reception. Patient seen this morning. Patient family not present at bedside. Patient speaking with being at bedside I have introduced myself since it is our first time meeting she remember Dr. Jaden Pappas and I did mention to him by name. She reports that she does not have a good relationship with her kids. She reports that she was by herself. Patient noted that she does not want to stay at the hospital. She does not understand why she is still here. Patient noted patient noted auditory hallucinations during my encounter with her this morning. Patient noted that she no longer wants to see me at this time. And does not want me to examine her. I did speak with a psychiatrist Dr. Ward at 4 PM on 11/04/18 and we did have discussion where and patient is not meeting admission criteria for inpatient [facility] for involuntary psych that patient does not voluntarily want to go to [facility] and that there is no legal POA for the patient, from psych stable stable for discharge from psych standpoint, and that we cannot keep the patient here against her will unless she has legal POA who can make decisions for her. My Resident Taylor who spoken with patient's daughter Maria R via telephone conversation who we reiterated the conversation we had with the psychiatrist, Dr Ward, that we cannot keep the patient here against her will (once she has been stable psychiatric standpoint) and she is medically stable for discharge and that we will start the Olanazpine 2.5mg PO BID that was recommended by the psychiatrist, and she will need follow-up outpatient with the psychiatrist. Patient's daughter, Maria R echoed she understands the discharge plan and understands we cannot keep the patient here against her will and she reports she wishes that had started the POA process prior to her mother's dementia but they never got around to it.
--- NOTE | 2018-11-04 16:37 | CP.PCM.DIS ---
Provider - Provider Date of Admission: 11/02/18 15:29 Attending physician: Zeny Mackenzie DO Consults: 10/30/18 16:04 Psychiatry Consult Routine Comment: Consulting Provider: Yen Ward Consulting Physician: Yen Ward Reason for Consult: delusional, paranoia, ?dementia Time Spent in preparation of Discharge (in minutes): 45 Diagnosis - Discharge Diagnosis (1) Glaucoma Status: Chronic (2) Altered mental status Status: Chronic (3) Dementia Status: Chronic Hospital Course - Lab Results Lab Results: Micro Results 10/30/18 14:40 Urine Random Urine Culture - Final 10-50,000 CFU/ML. MULTIPLE SPECIES. PROBABLE CONTAMINATION. 10/30/18 17:19 Urine,Catheterized Urine Culture - Final No Growth (<1,000 CFU/ML) Most Recent Lab Values WBC 8.9 K/uL (4.8-10.8) 10/30/18 13:25 RBC 4.75 Mil/uL (3.80-5.20) 10/30/18 13:25 Hgb 15.0 g/dL (11.0-16.0) 10/30/18 13:25 Hct 42.7 % (34.0-47.0) 10/30/18 13:25 MCV 89.8 fL (81.0-99.0) D 10/30/18 13:25 MCH 31.5 pg (27.0-31.0) H 10/30/18 13:25 MCHC 35.1 g/dL (33.0-37.0) 10/30/18 13:25 RDW 13.4 % (11.5-14.5) 10/30/18 13:25 Plt Count 229 K/uL (130-400) 10/30/18 13:25 MPV 8.8 fL (7.2-11.7) 10/30/18 13:25 Neut % (Auto) 67.6 % (50.0-75.0) 10/30/18 13:25 Lymph % (Auto) 23.6 % (20.0-40.0) 10/30/18 13:25 Ector % (Auto) 6.5 % (0.0-10.0) 10/30/18 13:25 Eos % (Auto) 1.3 % (0.0-4.0) 10/30/18 13:25 Baso % (Auto) 1.0 % (0.0-2.0) 10/30/18 13:25 Neut # (Auto) 6.0 K/uL (1.8-7.0) 10/30/18 13:25 Lymph # (Auto) 2.1 K/uL (1.0-4.3) 10/30/18 13:25 Ector # (Auto) 0.6 K/uL (0.0-0.8) 10/30/18 13:25 Eos # (Auto) 0.1 K/uL (0.0-0.7) 10/30/18 13:25 Baso # (Auto) 0.1 K/uL (0.0-0.2) 10/30/18 13:25 Sodium 139 mmol/L (132-148) 10/30/18 13:25 Potassium 4.2 mmol/L (3.6-5.2) 10/30/18 13:25 Chloride 106 mmol/L (98-107) 10/30/18 13:25 Carbon Dioxide 21 mmol/L (22-30) L 10/30/18 13:25 Anion Gap 17 (10-20) 10/30/18 13:25 BUN 20 mg/dL (7-17) H 10/30/18 13:25 Creatinine 0.8 mg/dL (0.7-1.2) 10/30/18 13:25 Est GFR ( Amer) > 60 10/30/18 13:25 Est GFR (Non-Af Amer) > 60 10/30/18 13:25 Random Glucose 104 mg/dL (65-105) D 10/30/18 13:25 Calcium 10.1 mg/dl (8.6-10.4) 10/30/18 13:25 Total Bilirubin 0.7 mg/dL (0.2-1.3) 10/30/18 13:25 AST 28 U/L (14-36) 10/30/18 13:25 ALT 23 U/L (9-52) 10/30/18 13:25 Alkaline Phosphatase 74 U/L (38-126) 10/30/18 13:25 Total Protein 7.2 g/dL (6.3-8.3) 10/30/18 13:25 Albumin 4.5 g/dL (3.5-5.0) 10/30/18 13:25 Globulin 2.7 gm/dL (2.2-3.9) 10/30/18 13:25 Albumin/Globulin Ratio 1.7 (1.0-2.1) 10/30/18 13:25 Lipase 96 U/L (23-300) 10/30/18 13:25 TSH 3rd Generation 2.44 mIU/L (0.46-4.68) 10/30/18 13:25 Urine Color Yellow (YELLOW) 10/30/18 13:25 Urine Clarity Hazy (Clear) 10/30/18 13:25 Urine pH 5.0 (5.0-8.0) 10/30/18 13:25 Ur Specific [place] 1.011 (1.003-1.030) 10/30/18 13:25 Urine Protein Negative mg/dL (NEGATIVE) 10/30/18 13:25 Urine Glucose (UA) Normal mg/dL (Normal) 10/30/18 13:25 Urine Ketones Negative mg/dL (NEGATIVE) 10/30/18 13:25 Urine Blood Negative (NEGATIVE) 10/30/18 13:25 Urine Nitrate Negative (NEGATIVE) 10/30/18 13:25 Urine Bilirubin Negative (NEGATIVE) 10/30/18 13:25 Urine Urobilinogen Normal mg/dL (0.2-1.0) 10/30/18 13:25 Ur Leukocyte Esterase 3+ Adalid/uL (Negative) H 10/30/18 13:25 Urine WBC (Auto) 91 /hpf (0-5) H 10/30/18 13:25 Urine RBC (Auto) 5 /hpf (0-3) H 10/30/18 13:25 Ur Squamous Epith Cells 37 /hpf (0-5) H 10/30/18 13:25 Urine Bacteria Occ (<OCC) H 10/30/18 13:25 Urine Opiates Screen Negative (NEGATIVE) 10/30/18 13:25 Urine Methadone Screen Negative (NEGATIVE) 10/30/18 13:25 Ur Barbiturates Screen Negative (NEGATIVE) 10/30/18 13:25 Ur Phencyclidine Scrn Negative (NEGATIVE) 10/30/18 13:25 Ur Amphetamines Screen Negative (NEGATIVE) 10/30/18 13:25 U Benzodiazepines Scrn Negative (NEGATIVE) 10/30/18 13:25 U Oth Cocaine Metabols Negative (NEGATIVE) 10/30/18 13:25 U Cannabinoids Screen Negative (NEGATIVE) 10/30/18 13:25 Alcohol, Quantitative < 10 mg/dl (0-10) 10/30/18 13:25 - Hospital Course Hospital Course: Patient is a 78 yo female with no significant PMH who presented after being found by police wandering in the streets. Patient is expressing numerous paranoid delusions and is attempting to elope. Patient's daughter called who stated that this has been occurring for 5 years. Patient medicated and placed on 1:1. Patient does not want to voluntary sign into a psychiatry unit; [facility] evaluation for involuntary commitment was NOT accepted. Pt was recommended to be transferred to [facility] for voluntary geriatric psych. spoke with pt's daughter, understands that pt was accepted by [facility] for involuntary psych Discharge Exam - Head Exam Head Exam: ATRAUMATIC, NORMAL INSPECTION Discharge Plan - Discharge Medications Prescriptions: Olanzapine 2.5 mg PO BID #60 tablet Timolol 0.5% Ophth [Timoptic 0.5% Ophth Soln] 1 drop OU DAILY #1 bottle - Follow Up Plan Condition: STABLE Disposition: HOME/ ROUTINE Instructions: Dehydration, Adult (DC), Urinary Tract Infection, Adult (DC), Olanzapine, Altered Mental Status (GEN) Additional Instructions: Pt is to be discharged home on the following medications Olanzapine 2.5mg PO BID Timolol Drops Daily Pt offered inpatient geriatric psych services at [facility] but refused Pt is refusing continued psychiatric care, would like to go home Patient was instructed to follow up with Dr Ward in office within 7 days Referrals: Yen Ward MD [Staff Provider] -
[2018-11-05 07:57] VITALS: BP 117/61; PULSE 95; TEMP 98.7; O2SAT 96
--- NOTE | 2018-11-05 11:06 | CP.PCM.PCO ---
<Nilo Weiss - Last Filed: 11/05/18 11:03> Addendum Addendum: 11/05/18 11:03 Patient did not leave overnight, Daughter is not able to come picker / packer the patient until sunday, Patient refuses to see son or daughter in law. Patient is to go home with prescribed medications. Patient refusing [facility] ch[facility] services. given STAT dose of olanzapine CK PGY1 <Zeny Mackenzie V - Last Filed: 11/05/18 15:21> Physician Communication Note - Physician Communication Note Physician Communication Note: Patient's discharge order placed yesterday 11/04/18. Discharge discussed with
--- NOTE | 2018-11-05 15:12 | PCM.PYCHPN ---
Psychiatric Progress Note - Psychiatric Progress Note Patient seen today, length of contact: 15 min Patient Chief Complaint: I m feeling naida.' ' Problems Identified/Issues Discussed: Patient was seen and evaluated, chart reviewed and discussed the staff. As per staff patient has some moments of paranoia and voices. However she remained calm. Per medical team she is still refusing some tests. However she appears better than before. She denies any auditory or visual hallucinations and denies any suicidal ideation or any homicidal ideation to the contract technical writer. Patient was seen by [facility] screeners and they refused to take her. She reports that she does not want her family involved in her case. Supportive therapy was provided Medication Change: Yes Medical Record Reviewed: Yes Mental Status Examination - Cognitive Function Orientation: Person, Place, Situation, Time Memory: Intact Attention: WNL Concentration: Poor Association: WNL Fund of Knowledge: Poor - Mood Mood: Anxious - Affect Affect: Constricted - Speech Speech: Soft - Formal Thought Process Formal Thought Process: Paranoia - Suicidal Ideation Suicidal Ideation: No - Homicidal Ideation Homicidal Ideation: No Goal/Treatment Plan - Goal/Treatment Plan Need for Continued Stay: Remain at risks for inpatient hospitalization Progress Toward Problem(s) and Goals/Treatment Plan: Hydroxyzine prn Olanzapine 2.5 mg p.o. twice daily Patient was seen by [facility] screeners and they refused to take her. She does not want to sign in, voluntarily at 5 E. Patient to be discharged today. - Smoking Cessation Smoking Cessation Initiated: No
--- NOTE | 2018-11-05 15:56 | CP.PCM.PN ---
Subjective - Date & Time of Evaluation Date of Evaluation: 11/05/18 Time of Evaluation: 15:00 - Subjective Subjective: Note: I spoke with patient's son and patient tax representative Ana small in the afternoon. Patient's son is very upset, is very belligerent, making inflammatory statements following patient's discharge today (order was placed yesterday afternoon; patient did not physically leave) though this was explained to his sister yesterday afternoon in detail regarding discharge planning and plan going forward. I did re-emphasized the events of Sunday in regards to my encounter and conversation with the psychiatrist including from psych standpoint stable for discharge from their standpoint, that we cannot keep the patient against her wi ll in the hospital since he nor sister do not have power of contracts attorney or healthy proxy status to makes decisions on their mother's behalf, and that patient is medically stable to leave the hospital (seen walking, talking, eating),and finally, his mom voluntarily wants to leave the hospital, and that his [facility] and did not meet criteria for inpatient [facility] psych admission; so the plan upon discharge was to followup psych as outpatient and to continue the Olanzapine 2.5mg PO BID upon discharge. I also indicated that we spoke with his sister Maria R, which he confirms to be true regarding discharge instructions as he and her yelling on the phone presently. He reports "you are doing your job" and "psychiatrist is doing your job" and "I am not upset with either of you" but then subsequently quoted a conversation that he had with my colleague, Dr Pappas from Sunday evening about that the patient was not going to leave the hospital and I reiterated we discussed with his sister on the phone yesterday regarding we cannot keep his mother here against her will if psych says stable to go home and he agrees he knows "understands we are doing our jobs". However, he is finger point at me, interrupt me though noting he understands but thought his mother could stay here at the hospital for unspecified length of time. He is angry and his sister who is also yelling on the phone with and threatening to pursue legal action and wanting other names. I pardoned myself out of this conversation since he was yelling at me, patient neonatal intensive care nurse, and at his sister on telephone at bedside. I did indicate to him if he wants to speak with the psychiatrist he can as well. I have brought this to the attention to physician advisor, Dr. Hobson and patient care tax representative, Ana, and following this conversation since patient's son did not like my response though agreed was true and verified with his sister on the phone. Objective - Vital Signs/Intake and Output Vital Signs (last 24 hours): Temp Pulse Resp BP Pulse Ox 98.7 F 95 H 20 117/61 96 11/05/18 07:00 11/05/18 07:00 11/05/18 07:00 11/05/18 07:00 11/05/18 07:00 - Labs Labs: 10/30/18 13:25 10/30/18 13:25
== END 2018-11-05 12:20 | disposition home or self-care (01) | DRG 57 ==
LOC: C.ER 11:35 → C.9E 15:02 → C.5S 18:50 → OBSVTOIN 11-02 15:29
PROVIDERS: ADMIT Hospitalist; ATTEND Hospitalist
DX: G30.9 Alzheimer's disease, unspecified (principal); N39.0 Urinary tract infection, site not specified; F02.81 Dementia in other diseases classified elsewhere, unspecified severity, with behavioral disturbance; F05 Delirium due to known physiological condition; E86.0 Dehydration; F03.90 Unspecified dementia, unspecified severity, without behavioral disturbance, psychotic disturbance, mood disturbance, and anxiety; H40.9 Unspecified glaucoma; Z91.83 Wandering in diseases classified elsewhere; Z87.891 Personal history of nicotine dependence; Z90.710 Acquired absence of both cervix and uterus; Z82.49 Family history of ischemic heart disease and other diseases of the circulatory system

== ENCOUNTER 2018-11-08 12:29 | Emergency (ER) | payer MEDICARE ==
--- NOTE | 2018-11-08 12:46 | C.PDOC ---
History Of Present Illness 78 y/o female, with history of dementia, comes in to ED for reported agitation and SI. Patient was previously hospitalized and admitted for similar, and discharged yesterday. Patient has no other complaints. Denies homicidal ideation or hallucinations. Time Seen by Provider: 11/08/18 12:42 Chief Complaint (Nursing): Psychiatric Evaluation History Per: Patient History/Exam Limitations: no limitations Onset/Duration Of Symptoms: Hrs Current Symptoms Are (Timing): Still Present Past Medical History Reviewed: Historical Data, Nursing Documentation, Vital Signs - Medical History PMH: Denies: Diabetes, Hepatitis, HIV, HTN, Seizures, Sexually Transmitted Disease Family History: States: No Known Family Hx - Social History Hx Alcohol Use: Yes Hx Substance Use: No - Immunization History Hx Tetanus Toxoid Vaccination: Yes Hx Influenza Vaccination: Yes Hx Pneumococcal Vaccination: Yes Review Of Systems Except As Marked, All Systems Reviewed And Found Negative. Constitutional: Negative for: Fever, Chills Psych: Positive for: Suicidal ideation, Other (no homicidal ideation or hallucinations) Physical Exam - Physical Exam Appears: Non-toxic, No Acute Distress Skin: Warm, Dry Head: Normacephalic Eye(s): bilateral: PERRL Oral Mucosa: Moist Neck: Supple Cardiovascular: Rhythm Regular, No Murmur Respiratory: Normal Breath Sounds, No Rales, No Rhonchi, No Wheezing Gastrointestinal/Abdominal: Soft, No Tenderness Extremity: Bilateral: Atraumatic, Normal Color And Temperature, Normal ROM Neurological/Psych: Oriented x3, Normal Speech ED Course And Treatment - Laboratory Results Result Diagrams: 11/08/18 15:07 11/08/18 15:07 O2 Sat by Pulse Oximetry: 97 (RA) Pulse Ox Interpretation: Normal - Other Rad CXR X-Ray: Read By Radiologist Interpretation: FINDINGS: LUNGS: The lungs are well inflated and clear. PLEURA: No pneumothorax or pleural effusion. CARDIOVASCULAR: The heart is normal in size. There are aortic atherosclerotic calcifications present. 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 VISUALIZED UPPER ABDOMEN: Normal. OTHER FINDINGS: None. IMPRESSION: No active pulmonary disease. Medical Decision Making Medical Decision Making: pending crisis. ?demenita with agitation. Plan: --EKG --Labs --Chest XR --UA baseline pysch vs dementai. seen numerous times by crisis in past. in er, in nad. awake alert cooperative in nad. seen by crisis. cleared by crsiis. crsiis spoke to family about discharge. fmaily agreeable to dc. Disposition - Disposition Disposition: HOME/ ROUTINE Disposition Time: 17:50 Condition: STABLE Additional Instructions: return to er with worsening. Instructions: Adjustment Disorder Forms: [employer] (Montenegrin) - Clinical Impression Clinical Impression: Adjustment disorder - Scribe Statement The provider has reviewed the documentation as recorded by the Ngoc Faith Provider Attestation: All medical record entries made by the Ngoc were at my direction and personally dictated by me. I have reviewed the chart and agree that the record accurately reflects my personal performance of the history, physical exam, medical decision making, and the department course for this patient. I have also personally directed, reviewed, and agree with the discharge instructions and disposition.
[2018-11-08 14:35] LABS: SQUAMOUS EPITHIAL 1 /hpf (0-5); URINE BACTERIA RARE (<OCC); URINE BILIRUBIN NEGATIVE (NEGATIVE); URINE BLOOD NEGATIVE (NEGATIVE); URINE CLARITY Clear (Clear); URINE COLOR Yellow (YELLOW); URINE GLUCOSE (UA) NORMAL (Normal); URINE LEUKOCYTE ESTERASE 2+ Leu/uL (Negative); URINE PROTEIN NEGATIVE (NEGATIVE); URINE UROBILINOGEN NORMAL mg/dL (0.2-1.0)
--- NOTE | 2018-11-08 14:42 | RAD ---
Date of service: 11/08/2018 PROCEDURE: CHEST RADIOGRAPH, 1 VIEW HISTORY: Detox/Psy COMPARISON: None available. FINDINGS: LUNGS: The lungs are well inflated and clear. PLEURA: No pneumothorax or pleural effusion. CARDIOVASCULAR: The heart is normal in size. There are aortic atherosclerotic calcifications present. 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 VISUALIZED UPPER ABDOMEN: Normal. OTHER FINDINGS: None. IMPRESSION: No active pulmonary disease.
[2018-11-08 14:52] LABS: BARBITURATES, UR NEGATIVE (NEGATIVE); BENZODIAZEPINES, UR NEGATIVE (NEGATIVE); OPIATES, UR NEGATIVE (NEGATIVE); PHENCYCLIDINE, UR NEGATIVE (NEGATIVE)
[2018-11-08 15:13] LABS: BASO # 0.1 K/uL (0.0-0.2); EOS # 0.2 K/uL (0.0-0.7); EOS % 3.1 % (0.0-4.0); HEMOGLOBIN 14.6 g/dL (11.0-16.0); LYMPH # 2.5 K/uL (1.0-4.3); LYMPH % 30.9 % (20.0-40.0); MEAN CELL VOLUME 89.8 fL (81.0-99.0); MEAN CORPUSCULAR HEMOGLOBIN 31.1 pg (27.0-31.0); MEAN CORPUSCULAR HGB CONC 34.6 g/dL (33.0-37.0); MEAN PLATELET VOLUME 8.6 fL (7.2-11.7); MONO # 0.8 K/uL (0.0-0.8); MONO % 9.9 % (0.0-10.0); NEUT # 4.4 K/uL (1.8-7.0); NEUT % 55.1 % (50.0-75.0); NRBC % 0.2 % (0.0-2.0); RBC 4.7 Mil/uL (3.80-5.20); RED CELL DISTRIBUTION WIDTH 13.1 % (11.5-14.5); WHITE BLOOD COUNT 7.9 K/uL (4.8-10.8)
[2018-11-08 15:29] LABS: ACETAMINOPHEN < 10.0 ug/mL (10.0-30.0); SALICYLATE < 1.0 {null, mg/dL 1}
[2018-11-08 15:35] LABS: ALB/GLOB RATIO 1.6 (1.0-2.1); ALBUMIN 4.4 g/dL (3.5-5.0); ALT/SGPT 33 U/L (9-52); AST/SGOT 45 U/L (14-36); BLOOD UREA NITROGEN 22 mg/dL (7-17); CALCIUM 10.1 mg/dl (8.6-10.4); GFR NON-AFRICAN AMERICAN > 60
[2018-11-08 17:06] VITALS: TEMP 98.8
[2018-11-08 18:00] VITALS: BP 152/82; PULSE 69; RESP 20; O2SAT 97
== END 2018-11-08 18:08 | disposition home or self-care (01) ==
LOC: C.ER 12:29
DX: F43.20 Adjustment disorder, unspecified (principal)
CPT/HCPCS: 71045; 80053; 81001; 83735; 84100; 85025; 99284; G0480